=== PATIENT | male | born 1950 | race Two or more races ===

== ENCOUNTER 2018-03-10 19:19 | Inpatient (IN) | payer MEDICARE ==
[~2018-03-10] VITALS: Ht 185.4 cm; Wt 115.7 kg
[2018-03-10] MEDS ORDERED: SODIUM CHLORIDE 0.9% 1,000 ML IV ONE (23:30)
[2018-03-10] MEDS ORDERED: ALBUTEROL (0.083%) 2.5MG/3ML NEB HHN NR (23:45)
[2018-03-11] VITALS (7 sets, daily range): BP systolic 125–178; BP diastolic 69–95
[2018-03-11 01:26] LABS: CHLORIDE 101 mEq/L (98-107)
[2018-03-11 01:28] LABS: BASOPHILS % 1.1 % (0.0-2.0); EOSINOPHILS % 2.2 % (0.0-5.0); HEMATOCRIT. 38.2 % (42.0-52.0); HEMOGLOBIN. 11.1 g/dL (14.0-18.0); LYMPHOCYTES % 19.9 % (20.0-50.0); MEAN CORPUSCULAR HEMOGLOBIN 17.6 pg (28.0-32.0); MEAN CORPUSCULAR VOLUME 60.5 fL (80.0-94.0); MEAN PLATELET VOLUME 8.5 fl (7.4-10.4); MONOCYTES % 8.9 % (2.0-8.0); NEUTROPHILS % 67.9 % (40.0-76.0); PLATELET 191 x1000/uL (130-400); RED BLOOD CELL COUNT 6.31 mill/uL (4.7-6.1); RED CELL DISTRIBUTION WIDTH 21.7 % (11.6-14.6)
[2018-03-11 01:36] LABS: PLATELET ESTIMATE NORMAL
[2018-03-11] MEDS ORDERED: FUROSEMIDE 40MG/4ML VIAL IVP NR (02:15)
[2018-03-11] MEDS ORDERED: DEXTROSE 50% WATER 50ML SYRINGE IV PRN (07:00)
[2018-03-11] MEDS ORDERED: FUROSEMIDE 40MG/4ML VIAL IVP SCH ×2 (07:15→07:30)
[2018-03-11] MEDS: BLOOD SUGAR DIAGNOSTIC STRIP TEST SCH ×4 (07:16→20:44)
[2018-03-11] MEDS ORDERED: LISINOPRIL 20MG TABLET PO SCH (09:00)
[2018-03-11] MEDS ORDERED: CARVEDILOL 3.125 MG TABLET PO SCH (09:00)
[2018-03-11] MEDS: INSULIN LISPRO 100 UNITS/ML SUBCUT SCH ×4 (09:17→20:53)
[2018-03-11] MEDS: METHYLPREDNISOLONE SOD SUCC 40 MG/ML VIAL IV SCH ×2 (09:17→17:11)
[2018-03-11] MEDS: ASPIRIN 325MG EC TABLET PO SCH (09:32)
[2018-03-11] MEDS: BUDESONIDE 0.5MG/2ML NEB HHN SCH ×2 (10:45→21:09)
[2018-03-11] MEDS: IPRATROPIUM/ALBUTEROL 0.5-3(2.5)MG/3ML NEB HHN PRN ×3 (10:45→21:09)
[2018-03-11] MEDS: GUAIFENESIN 600MG ER TABLET PO SCH ×2 (11:48→20:51)
[2018-03-11] MEDS: AZITHROMYCIN 500 MG TABLET PO SCH (11:55)
[2018-03-11] MEDS: NICOTINE 21MG PATCH TD SCH (11:56)
[2018-03-11] MEDS: MONTELUKAST SODIUM 10MG TABLET PO SCH (18:32)
[2018-03-11] MEDS: ENOXAPARIN 30MG/0.3ML SYR SUBCUT SCH (20:51)
[2018-03-12 00:27] VITALS: BP 156/68
[2018-03-12] MEDS: METHYLPREDNISOLONE SOD SUCC 40 MG/ML VIAL IV SCH ×3 (00:59→16:26)
[2018-03-12 04:00] VITALS: BP 147/71
[2018-03-12] MEDS: BLOOD SUGAR DIAGNOSTIC STRIP TEST SCH ×4 (05:50→20:32)
[2018-03-12 06:54] LABS: BASOPHILS % 0.2 % (0.0-2.0); EOSINOPHILS % 0.3 % (0.0-5.0); HEMATOCRIT. 41.2 % (42.0-52.0); HEMOGLOBIN. 11.9 g/dL (14.0-18.0); LYMPHOCYTES % 8.1 % (20.0-50.0); MEAN CORPUSCULAR HEMOGLOBIN 17.7 pg (28.0-32.0); MEAN CORPUSCULAR VOLUME 60.9 fL (80.0-94.0); MONOCYTES % 1.9 % (2.0-8.0); NEUTROPHILS % 89.5 % (40.0-76.0); PLATELET 205 x1000/uL (130-400); RED BLOOD CELL COUNT 6.76 mill/uL (4.7-6.1); RED CELL DISTRIBUTION WIDTH 21.5 % (11.6-14.6)
[2018-03-12 06:55] LABS: CHLORIDE 95 mEq/L (98-107)
[2018-03-12 08:00] VITALS: BP 159/72
[2018-03-12] MEDS: ENOXAPARIN 30MG/0.3ML SYR SUBCUT SCH ×2 (08:11→21:01)
[2018-03-12] MEDS: GUAIFENESIN 600MG ER TABLET PO SCH ×2 (08:12→21:01)
[2018-03-12] MEDS: ASPIRIN 325MG EC TABLET PO SCH (08:12)
[2018-03-12] MEDS: INSULIN LISPRO 100 UNITS/ML SUBCUT SCH ×4 (08:17→21:04)
[2018-03-12] MEDS: LISINOPRIL 20MG TABLET PO SCH (08:18)
[2018-03-12] MEDS: AZITHROMYCIN 500 MG TABLET PO SCH (08:31)
[2018-03-12] MEDS: NICOTINE 21MG PATCH TD SCH (08:37)
[2018-03-12] MEDS: BUDESONIDE 0.5MG/2ML NEB HHN SCH ×2 (09:35→20:43)
[2018-03-12 12:00] VITALS: BP 144/72
[2018-03-12] MEDS ORDERED: SODIUM POLYSTYRENE SULFONATE 15 G/60 ML BOT PO SCH (12:00)
[2018-03-12 16:00] VITALS: BP 139/77
[2018-03-12] MEDS: MONTELUKAST SODIUM 10MG TABLET PO SCH (16:26)
[2018-03-12 20:30] VITALS: BP 163/92
[2018-03-12] MEDS: AMLODIPINE 5MG TABLET PO SCH (21:02)
[2018-03-12] MEDS: INSULIN GLARGINE UD 100 UNITS/ML SYR SUBCUT SCH (21:17)
[2018-03-13 00:44] VITALS: BP 154/63
[2018-03-13] MEDS: METHYLPREDNISOLONE SOD SUCC 40 MG/ML VIAL IV SCH ×3 (01:48→16:43)
[2018-03-13 04:00] VITALS: BP 157/80
[2018-03-13] MEDS: BLOOD SUGAR DIAGNOSTIC STRIP TEST SCH ×4 (05:47→21:00)
[2018-03-13 08:00] VITALS: BP 105/69
[2018-03-13 08:00] LABS: BASOPHILS % 0.1 % (0.0-2.0); EOSINOPHILS % 0.1 % (0.0-5.0); HEMATOCRIT. 41.3 % (42.0-52.0); HEMOGLOBIN. 11.8 g/dL (14.0-18.0); MEAN CORPUSCULAR HEMOGLOBIN 17.4 pg (28.0-32.0); MEAN CORPUSCULAR VOLUME 60.7 fL (80.0-94.0); MONOCYTES % 5.4 % (2.0-8.0); NEUTROPHILS % 83.4 % (40.0-76.0)
[2018-03-13 08:14] LABS: MEAN PLATELET VOLUME 8.7 fl (7.4-10.4)
[2018-03-13 08:15] LABS: PLATELET 208 x1000/uL (130-400)
[2018-03-13] MEDS: INSULIN LISPRO 100 UNITS/ML SUBCUT SCH ×4 (08:22→20:41)
[2018-03-13] MEDS: IPRATROPIUM/ALBUTEROL 0.5-3(2.5)MG/3ML NEB HHN PRN ×2 (08:26→21:42)
[2018-03-13] MEDS: BUDESONIDE 0.5MG/2ML NEB HHN SCH ×2 (08:27→21:42)
[2018-03-13] MEDS: GUAIFENESIN 600MG ER TABLET PO SCH ×2 (08:38→20:38)
[2018-03-13] MEDS: ASPIRIN 325MG EC TABLET PO SCH (08:38)
[2018-03-13] MEDS: AZITHROMYCIN 500 MG TABLET PO SCH (08:38)
[2018-03-13] MEDS: NICOTINE 21MG PATCH TD SCH (08:38)
[2018-03-13] MEDS: ENOXAPARIN 30MG/0.3ML SYR SUBCUT SCH ×2 (08:39→20:40)
[2018-03-13] MEDS: AMLODIPINE 5MG TABLET PO SCH ×2 (09:00→20:40)
[2018-03-13] MEDS: LISINOPRIL 20MG TABLET PO SCH (09:00)
[2018-03-13 09:39] LABS: CHLORIDE 97 mEq/L (98-107)
[2018-03-13] MEDS: INSULIN GLARGINE UD 100 UNITS/ML SYR SUBCUT SCH ×2 (11:04→20:42)
[2018-03-13 12:00] VITALS: BP 146/73
[2018-03-13 13:35] LABS: CLARITY URINE CLEAR (CLEAR); COLOR URINE YELLOW (YELLOW); KETONES URINE NEGATIVE (NEGATIVE); LEUKOCYTE ESTERASE URINE 1+ (NEGATIVE); NITRITE URINE NEGATIVE (NEGATIVE); OCCULT BLOOD URINE NEGATIVE (NEGATIVE); PROTEIN URINE NEGATIVE (NEGATIVE)
[2018-03-13 14:22] LABS: *AMPHETAMINES SCREEN URINE NEGATIVE (NEGATIVE)
[2018-03-13 14:23] LABS: *BARBITURATES SCREEN URINE NEGATIVE (NEGATIVE); *BENZODIAZEPINES SCREEN URINE NEGATIVE (NEGATIVE); *COCAINE SCREEN URINE NEGATIVE (NEGATIVE); METHADONE URINE SCREEN NEGATIVE (NEGATIVE); OPIATES URINE SCREEN NEGATIVE (NEGATIVE); PHENCYCLIDINE URINE SCREEN NEGATIVE (NEGATIVE)
[2018-03-13 14:24] LABS: CANNABINOID URINE SCREEN PRESUMTIVE POSITIVE (NEGATIVE)
[2018-03-13 16:00] VITALS: BP 162/58
[2018-03-13] MEDS: MONTELUKAST SODIUM 10MG TABLET PO SCH (16:43)
[2018-03-13 20:00] VITALS: BP 127/64
[2018-03-14] VITALS: BP 148/68
[2018-03-14] MEDS: METHYLPREDNISOLONE SOD SUCC 40 MG/ML VIAL IV SCH ×2 (00:29→09:08)
[2018-03-14] MEDS: IPRATROPIUM/ALBUTEROL 0.5-3(2.5)MG/3ML NEB HHN PRN ×2 (01:40→10:05)
[2018-03-14 04:00] VITALS: BP 168/69
[2018-03-14] MEDS: BLOOD SUGAR DIAGNOSTIC STRIP TEST SCH (07:21)
[2018-03-14 08:00] VITALS: BP 163/82
[2018-03-14] MEDS: NICOTINE 21MG PATCH TD SCH (09:08)
[2018-03-14] MEDS: ASPIRIN 325MG EC TABLET PO SCH (09:08)
[2018-03-14] MEDS: ENOXAPARIN 30MG/0.3ML SYR SUBCUT SCH (09:08)
[2018-03-14] MEDS: AZITHROMYCIN 500 MG TABLET PO SCH (09:08)
[2018-03-14] MEDS: AMLODIPINE 5MG TABLET PO SCH (09:09)
[2018-03-14] MEDS: LISINOPRIL 20MG TABLET PO SCH (09:09)
[2018-03-14] MEDS: GUAIFENESIN 600MG ER TABLET PO SCH (09:09)
[2018-03-14] MEDS: INSULIN LISPRO 100 UNITS/ML SUBCUT SCH (09:18)
[2018-03-14] MEDS: BUDESONIDE 0.5MG/2ML NEB HHN SCH (10:05)
[2018-03-14] MEDS: INSULIN GLARGINE UD 100 UNITS/ML SYR SUBCUT SCH (10:26)
[2018-03-14 10:41] VITALS: BP 163/82
== END 2018-03-14 11:31 | disposition home or self-care (01) | DRG 191 ==
LOC: ER 19:19 → 6WST 03-11 02:10 → EDBEDREQ 03-11 02:56 → EDBEDREQTM 03-11 02:56 → ENRESERV 03-11 03:18
PROVIDERS: ADMIT Internal Medicine; ATTEND Internal Medicine
DX: J44.1 Chronic obstructive pulmonary disease with (acute) exacerbation (principal); E44.0 Moderate protein-calorie malnutrition; I11.0 Hypertensive heart disease with heart failure; I50.9 Heart failure, unspecified; E11.9 Type 2 diabetes mellitus without complications; K21.9 Gastro-esophageal reflux disease without esophagitis; D64.9 Anemia, unspecified; E66.9 Obesity, unspecified; F17.210 Nicotine dependence, cigarettes, uncomplicated; Z68.33 Body mass index [BMI] 33.0-33.9, adult; Z71.6 Tobacco abuse counseling
CPT/HCPCS: 36415; 71045; 80048; 80305; 82962; 83880; 84484; 93005; 93306; 94640; 96374; 99285; C1893; J1650; J1815; J1940; J2920; J7030; J7611; J7620; J7626